=== PATIENT | female | born 1990 | race American Indian/Alaskan Native ===

== ENCOUNTER 2016-11-24 23:47 | Inpatient (IN) | payer MEDICAID ==
[2016-11-25] MEDS ORDERED: SUBLIMAZE IV PRN (00:34)
[2016-11-25] MEDS ORDERED: STADOL IV PRN (00:34)
[2016-11-25] MEDS ORDERED: NARCAN 0.4 MG/1 ML IV PRN (00:34)
[2016-11-25] MEDS ORDERED: NUBAIN IV PRN (00:34)
[2016-11-25] MEDS ORDERED: XYLOCAINE 2% INFILTRATI ONE (00:34)
[2016-11-25] MEDS ORDERED: ZOFRAN IV PRN (00:34)
[2016-11-25] MEDS ORDERED: POLYCILLIN/NS 2 GM/100 ML 2 GM/100 ML BAG IV ONE (00:34)
[2016-11-25] MEDS ORDERED: PHENERGAN PO PRN ×2 (00:34→08:56)
[2016-11-25] MEDS ORDERED: MINERAL OIL PO PRN (00:34)
[2016-11-25] MEDS ORDERED: BRETHINE IVP PRN (00:34)
[2016-11-25] MEDS ORDERED: ePHEDrine SULFATE IV PRN (00:34)
[2016-11-25] MEDS ORDERED: BRETHINE SUB-Q PRN (00:34)
[2016-11-25] MEDS ORDERED: PITOCin/NS 20 UNIT/1000ML DRIP 20 UNITS/1,000 ML BAG IV SCH (01:00)
[2016-11-25] MEDS ORDERED: PITOCin/NS 30 UNIT/500ML 30 UNITS/500 ML BAG IV SCH ×2 (01:00)
[2016-11-25] MEDS: LACTATED RINGERS 1,000 ML IV SCH ×3 (01:00→06:09)
[2016-11-25 01:01] LABS: Hematocrit 29.2 % (30.3-42.9); Hemoglobin 9.7 gm/dl (10.1-14.3); Mean Corpuscular HGB Conc 33 % (30-34); Mean Corpuscular Hemoglobin 27 pg (28-32); Mean Corpuscular Volume 82 fl (79-97); Platelet Count 200 K/mm3 (140-440); Red Blood Count 3.55 M/mm3 (3.65-5.03); Red Cell Distribution Width 15.5 % (13.2-15.2); White Blood Count 7.2 K/mm3 (4.5-11.0)
[2016-11-25] MEDS ORDERED: ROBITUSSIN PO PRN (01:53)
--- NOTE | 2016-11-25 01:53 | History and Physical Report ---
History of Present Illness Date of examination: 11/25/16 Date of admission: 11/25/16 00:32 Chief complaint: water leaking " I think my water broke" History of present illness: This is a 26 yo at 39+2 weeks in complaining of leaking since 9pm. She said there was a gush and clear fluid in hr panties. She denies ctx. and good fm. No report of vaginal bleeding. 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 denies: smoking, alcohol abuse, prescription drug abuse - Obstetrical History Expected Date of Delivery: 11/30/16 Actual Gestation: 39 Week(s) 2 Day(s) : 6 Para: 3 Hx # Term Pregnancies: 3 Number of Pregnancies: 0 Spontaneous Abortions: 1 Induced : 1 Number of Living Children: 3 Medications and Allergies Allergies Allergy/AdvReac Type Severity Reaction Status Date / Time Penicillins Allergy Rash Verified 02/23/16 10:38 Active Meds: Active Medications Butorphanol Tartrate (Stadol) 1 mg IV Q2H PRN PRN Reason: Pain, Moderate (4-6) Fentanyl (Sublimaze) 100 mcg IV Q2H PRN PRN Reason: Labor Pain Lactated Ringer's (Lactated Ringers) 1,000 mls @ 125 mls/hr IV DIRECT [place] Oxytocin/Sodium Chloride (Pitocin/Ns 20 Unit/1000ml Drip) 20 units in 1,000 mls @ 125 mls/hr IV DIRECT [place] Oxytocin/Sodium Chloride (Pitocin/Ns 30 Unit/500ml) 30 units in 500 mls @ 1 mls /hr IV TITR K[place]; 1 MILLIUNITS/MIN PRN Reason: Protocol Oxytocin/Sodium Chloride (Pitocin/Ns 30 Unit/500ml) 30 units in 500 mls @ 0 mls /hr IV TITR KOL[place]; As Directed PRN Reason: Protocol Clindamycin HCl (Cleocin 900 Mg/50 Ml) 900 mg in 50 mls @ 50 mls/hr IV Q8H KOL[place] Vancomycin HCl (Vancomycin/Ns 1 Gm/250 Ml) 1 gm in 250 mls @ 167.007 mls/hr IV ONCE ONE Stop: 11/25/16 03:07 Mineral Oil (Mineral Oil) 30 ml PO QHS PRN PRN Reason: Constipation Nalbuphine HCl (Nubain) 10 mg IV Q2H PRN PRN Reason: Pain, Moderate (4-6) Naloxone HCl (Narcan 0.4 Mg/1 Ml) 0.1 mg IV Q2MIN PRN PRN Reason: Res Rate </= 8 or 02 SAT < 92% Ondansetron HCl (Zofran) 4 mg IV Q8H PRN PRN Reason: Nausea And Vomiting Promethazine HCl (Phenergan) 25 mg PO Q6H PRN PRN Reason: Nausea And Vomiting Review of Systems All systems: negative Respiratory: cough Genitourinary: leakage of fluid - Physical Exam Breasts: Positive: deferred Cardiovascular: Regular rate, Normal S1, Normal S2 Lungs: Positive: Clear to auscultation Abdomen: Positive: normal appearance, soft, normal bowel sounds. Negative: distention, tenderness, guarding Genitourinary (Female): Positive: normal external genitalia, normal perenium Vulva: both: normal Vagina: Positive: other (fluid +) Uterus: Positive: normal size, normal contour Extremities: Positive: normal Deep Tendon Reflex Grade: Normal +2 - Obstetrical FHR: category 1 Uterine Contraction Monitor Mode: External Cervical Dilatation: 2 Cervical Effacement Percentage: 50 station: -3 Uterine Contraction Pattern: Irregular Results Result Diagrams: 11/25/16 00:46 Abnormal lab results 11/25/16 Range/Units 00:46 RBC 3.55 L (3.65-5.03) M/mm3 Hgb 9.7 L (10.1-14.3) gm/dl Hct 29.2 L (30.3-42.9) % MCH 27 L (28-32) pg RDW 15.5 H (13.2-15.2) % All other labs normal. Assessment and Plan A/P IUP 39+2 weeks, term GBS+ ( in office denied allergy to pcn but mentioned on this l and D visit that as a child there was a sensitivity questionable anaphyhlaxis but stated that she was not sure. Based on CDC guidelines if allergic and no sensitivities preferred treatment is Vanc 1g which will be initiated. Will offer epidural for pain control labs and ivf given consider pitocin for augmentation after treatement for GBS expect vaginal delivery
[2016-11-25] MEDS ORDERED: VANCOMYCIN/NS 1 GM/250 ML 1 GM/250 ML BAG IV ONE (02:00)
[2016-11-25] MEDS ORDERED: CLEOCIN 900 MG/50 mL 900 MG/50 ML BAG IV SCH (02:00)
[2016-11-25] MEDS ORDERED: POLYCILLIN/NS 1 GM/50 ML 1 GM/50 ML BAG IV SCH (04:37)
[2016-11-25] MEDS ORDERED: BENADRYL ONE (04:49)
[2016-11-25] MEDS ORDERED: BENADRYL PO ONE (04:49)
[2016-11-25] MEDS ORDERED: BENADRYL IV ONE (05:03)
[2016-11-25] MEDS ORDERED: fentaNYL-BUPIV 2 MCG/ML-0.125% 200 MCG/100 ML BAG EPIDURAL ONE (05:06)
[2016-11-25] MEDS ORDERED: ePHEDrine SULFATE ONE (05:07)
[2016-11-25] MEDS ORDERED: CYTOTEC ONE (05:47)
--- NOTE | 2016-11-25 08:00 | Procedure Note ---
OB Delivery Note - Delivery Date of Delivery: 11/25/16 Surgeon: BEKAH HERNANDEZ Estimated blood loss: 300cc - Vaginal Delivery presentation: vertex Delivery position: OA Intrapartum events: none Delivery induction: none Delivery augmentation: rupture of membranes Delivery monitor: external FHT, external uterine Route of delivery: Delivery placenta: spontaneous Delivery cord: 3 umbilical vessels Episiotomy: none Delivery laceration: none Anesthesia: epidural Delivery comments: Patient was noted to be c/c/0 station and commenced to pushing a viable male in oa presentation at 0739. the baby easily delivered head and shoulders and nasopharynx and oropharynx suctioned. The cord was clamped and cut and the baby placed on mother s chest. The placenta delivered intact with 3 vessel cord at 0743. Apgars 8 and 9. Weight of the fetus male is 6 pounds 10 ounces = 3013 . EBL 300cc. Patient tolerated procedure well.
[2016-11-25] MEDS ORDERED: MILK OF MAGNESIA PO PRN (08:56)
[2016-11-25] MEDS ORDERED: BENADRYL PO PRN (08:56)
[2016-11-25] MEDS ORDERED: PHENERGAN PR PRN (08:56)
[2016-11-25] MEDS ORDERED: LANSINOH TP PRN (08:56)
[2016-11-25] MEDS ORDERED: TUCKS PAD TP PRN (08:56)
[2016-11-25] MEDS ORDERED: TYLENOL PO PRN (08:56)
[2016-11-25] MEDS ORDERED: DULCOLAX PR PRN (08:56)
[2016-11-25] MEDS ORDERED: SODIUM CHLORIDE FLUSH SYRINGE 10 ML IV NR (09:00)
[2016-11-25] MEDS ORDERED: PITOCin/NS 20 UNIT/1000ML DRIP 20,000 MILLIUNITS/1,000 ML BAG IV ONE (10:15)
[2016-11-25] MEDS: MOTRIN PO SCH ×3 (12:25→21:16)
[2016-11-25 20:59] LABS: Hematocrit 28.2 % (30.3-42.9); Hemoglobin 9.4 gm/dl (10.1-14.3)
[2016-11-25] MEDS: NORCO 5/325 PO PRN (22:17)
[2016-11-26] MEDS: MOTRIN PO SCH ×4 (03:10→18:24)
[2016-11-26] MEDS: NORCO 5/325 PO PRN ×2 (08:14→17:04)
--- NOTE | 2016-11-26 08:35 | Progress Note ---
Assessment and Plan - Patient Problems (1) Spontaneous rupture of amniotic membranes Current Visit: Yes Status: Acute Plan to address problem: Patient doing well Discharge home Subjective - Subjective Date of service: 11/26/16 Interval history: The patient denies any significant pain. She states that her lochia is decreasing. She is tolerating a regular diet without complication. Patient reports: appetite normal, voiding normally, pain well controlled : doing well Objective - Vital Signs Latest vital signs: Vital Signs Temp Pulse Pulse Resp BP BP 11/26/16 08:14 20 11/26/16 06:04 18 11/26/16 01:26 98.3 F 88 14 102/63 11/25/16 22:17 18 11/25/16 16:00 98.0 F 56 L 18 108/58 11/25/16 12:00 98.7 F 57 L 16 132/74 11/25/16 08:47 55 L 132/64 11/25/16 08:43 57 L 136/64 11/25/16 08:39 56 L 132/61 Intake and Output 11/25/16 11/26/16 11/26/16 22:59 06:59 14:59 Intake Total 240 Balance 240 Intake: Oral 240 Other: Total, Intake Amount 240 # Voids Void 1 - Exam Abdomen: Present: normal appearance Uterus: Present: normal, firm - Labs Labs: Abnormal lab results 11/25/16 Range/Units 20:41 Hgb 9.4 L (10.1-14.3) gm/dl Hct 28.2 L (30.3-42.9) %
--- NOTE | 2016-11-26 08:36 | Discharge Summary ---
Providers - Providers Date of Admission: 11/25/16 00:32 Date of discharge: 11/26/16 Attending physician: BEKAH HERNANDEZ MD Primary care physician: BEKAH HERNANDEZ MD Hospitalization Reason for admission: active labor, rupture of membranes Delivery: Other procedures: none Discharge diagnosis: IUP at term delivered [place] baby: male Hospital course: The patient presented to labor and delivery with a complaint of leakage of fluid. The patient was augmented and underwent a vaginal delivery. Her course was uneventful. The patient was discharged home when she met discharge criteria. Condition at discharge: Good Disposition: DC-01 TO HOME OR SELFCARE - Discharge Diagnoses (1) Spontaneous rupture of amniotic membranes Status: Acute Plan - Discharge Medications Prescriptions: HYDROcodone/APAP 5-325 [[place] 5/325] 1 each PO Q6HR PRN #30 tablet PRN Reason: Pain Ibuprofen [Motrin] 800 mg PO Q8HR PRN #60 tablet PRN Reason: Pain - Provider Discharge Summary Activity: no sex for 6 weeks, no heavy lifting 4 weeks, no strenuous exercise Diet: routine Instructions: routine Additional instructions: [] Smoking cessation referral if applicable(refer to patient education folder for contact #) [] Refer to [facility] Booklet Call your doctor immediately for: * Fever > 100.5 * Heavy vaginal bleeding ( >1 pad per hour) * Severe persistent headache * Shortness of breath * Reddened, hot, painful area to leg or breast * Follow-up 4 weeks - Follow up plan
--- NOTE | 2016-11-26 10:58 | Progress Note ---
Subjective Date of service: 11/26/16 Interval history: 1st day after normal vaginal delivery Patient is in the bed, comfortable. Pain is well controlled with pain meds. No pruritus. Ambulated well. No residual neurological deficit. No anesthesia complications Objective - Constitutional Vitals: Vital Signs - 12hr 11/26/16 11/26/16 11/26/16 01:26 06:04 08:14 Temperature 98.3 F Pulse Rate [ 88 From Monitor] Pulse Rate [ Left Radial] Respiratory 14 18 20 Rate Blood Pressure 102/63 [Left Arm] 11/26/16 08:25 Temperature 98.0 F Pulse Rate [ From Monitor] Pulse Rate [ 56 L Left Radial] Respiratory 18 Rate Blood Pressure 100/60 [Left Arm] - Labs CBC & Chem 7: 11/25/16 20:41 Labs: Abnormal lab results 11/25/16 Range/Units 20:41 Hgb 9.4 L (10.1-14.3) gm/dl Hct 28.2 L (30.3-42.9) %
[2016-11-26] MEDS: PRENATAL VITAMIN PO SCH (12:16)
[2016-11-26] MEDS ORDERED: ROBITUSSIN DM PO PRN (17:27)
[2016-11-27] MEDS: MOTRIN PO SCH ×3 (00:11→12:00)
[2016-11-27] MEDS: NORCO 5/325 PO PRN (08:59)
[2016-11-27] MEDS: PRENATAL VITAMIN PO SCH (14:34)
[2016-11-27 15:29] VITALS: BP 120/58
== END 2016-11-27 16:15 | disposition home or self-care (01) | DRG 775 ==
LOC: TRG 23:47 → LD 11-25 00:32 → OB 11-25 09:15
PROVIDERS: ADMIT Obstetrics & Gynecology; ATTEND Obstetrics & Gynecology
PROC: 10E0XZZ Delivery of Products of Conception, External Approach (ICD-10-PCS; principal; 2016-11-25)
PROC: 00HU33Z Insertion of Infusion Device into Spinal Canal, Percutaneous Approach (ICD-10-PCS; 2016-11-25)
PROC: 3E0R3CZ (ICD-10-PCS; 2016-11-25)
DX: O99.824 Streptococcus B carrier state complicating childbirth (principal); O99.02 Anemia complicating childbirth; B00.9 Herpesviral infection, unspecified; Z3A.39 39 weeks gestation of pregnancy; Z37.0 Single live birth; Z88.0 Allergy status to penicillin
CPT/HCPCS: 36415; 85014; 85018; 85027; 86592; 86850; 86900; 86901; 99211; A6250; G0463; J1200; J2300; J2590; J3370; J7120

== ENCOUNTER 2018-11-16 09:59 | Emergency (ER) | payer MEDICAID ==
[2018-11-16 10:08] VITALS: BP 121/89
--- NOTE | 2018-11-16 10:46 | Emergency Department Report ---
ED Female HPI - General Chief complaint: Urogenital-Female Stated complaint: PELVIC PAIN Time Seen by Provider: 11/16/18 10:28 Source: patient Mode of arrival: Ambulatory Limitations: No Limitations - History of Present Illness Initial comments: 27-year-old -[place] female that is 7 para 3 last menstrual period 11/14/2018 comes in for abnormal vaginal bleeding and pelvic pain S started for about a week. Patient reports that she was sent over by Dr. Checo Pacheco for a transvaginal ultrasound. Patient reports that she's been having pelvic cramping as if she is having contractions. Patient reports that she's been on several different control including And now she's taking the patch. Patient reports that the progesterone in the -control mixer bleed. Patient does admit to nausea vomiting with some diarrhea. Patient reports that the blood has stopped since Friday after she placed a patch on. Patient reports she has a history of bipolar currently takes Zoloft 100 mg daily Restoril 50 mg twice a day and Abilify 2 mg daily at bedtime. MD Complaint: pelvic pain Onset/Timin -: week(s) Location: suprapubic Severity: severe Quality: cramping, sharp Consistency: constant Improves with: none Worsens with: menstrual period Are you Now?: No Last Menstrual Period: 11/14/18 EDC: 08/21/19 Associated Symptoms: vaginal bleeding (written), other (L foot pain) - Related Data Sexually active: Yes : 7 Para: 5 Previous Rx's Medication Instructions Recorded Last Taken Type HYDROcodone/APAP 5-325 [[place] 1 each PO Q6HR PRN #30 tablet 11/26/16 Unknown Rx 5/325] Ibuprofen [Motrin] 800 mg PO Q8HR PRN #60 tablet 11/26/16 Unknown Rx Ferrous Sulfate 325 mg PO BID #60 tablet. 04/16/18 Unknown Rx Ferrous Sulfate [Feosol 325 MG tab] 325 mg PO BID #60 tablet 04/16/18 Unknown Rx oxyCODONE /ACETAMINOPHEN [Percocet 1 tab PO Q4HR #30 tab 04/16/18 Unknown Rx 5/325] Ibuprofen [Motrin 600 MG tab] 600 mg PO Q8H PRN #30 tablet 11/16/18 Unknown Rx Allergies Allergy/AdvReac Type Severity Reaction Status Date / Time Penicillins Allergy Rash Verified 02/23/16 10:38 ED Review of Systems ROS: Stated complaint: PELVIC PAIN Other details as noted in HPI Comment: All other systems reviewed and negative ED Past Medical Hx - Past Medical History Previous Medical History?: No Hx Hypertension: No Hx Congestive Heart Failure: No Hx Diabetes: No Hx Deep Vein Thrombosis: No Hx Renal Disease: No Hx Sickle Cell Disease: No Hx Seizures: No Hx Asthma: No Hx COPD: No Hx HIV: No Additional medical history: bipolar - Surgical History Past Surgical History?: No - Social History Smoking Status: Current Every Day Smoker Substance Use Type: None - Medications Home Medications: Home Medications Medication Instructions Recorded Confirmed Last Taken Type HYDROcodone/APAP 5-325 [[place] 1 each PO Q6HR PRN #30 tablet 11/26/16 04/17/18 Unknown Rx 5/325] Ibuprofen [Motrin] 800 mg PO Q8HR PRN #60 tablet 11/26/16 04/17/18 Unknown Rx Ferrous Sulfate 325 mg PO BID #60 tablet. 04/16/18 Unknown Rx Ferrous Sulfate [Feosol 325 MG tab] 325 mg PO BID #60 tablet 04/16/18 Unknown Rx oxyCODONE /ACETAMINOPHEN [Percocet 1 tab PO Q4HR #30 tab 04/16/18 Unknown Rx 5/325] Ibuprofen [Motrin 600 MG tab] 600 mg PO Q8H PRN #30 tablet 11/16/18 Unknown Rx ED Physical Exam - General Limitations: No Limitations General appearance: alert, in no apparent distress - Head Head exam: Present: atraumatic, normocephalic - Eye Eye exam: Present: normal appearance - ENT ENT exam: Present: mucous membranes moist ED Course Vital Signs 11/16/18 11/16/18 10:04 11:02 Temperature 97.9 F Pulse Rate 71 Respiratory 18 18 Rate Blood Pressure 121/89 O2 Sat by Pulse 98 Oximetry ED Medical Decision Making - Radiology Data Radiology results: report reviewed Patient: DWAYNE HERRON MR#: [id number] : 1990 Acct:[id number] Age/Sex: 27 / F ADM Date: 11/16/18 Loc: ED Attending Dr: Ordering Physician: YAIR PICKARD Date of Service: 11/16/18 Procedure(s): US transvaginal Accession Number(s): [id number] cc: YAIR PICKARD PELVIC ULTRASOUND HISTORY: Elbow pain COMPARISON: None. TECHNIQUE: Transverse and longitudinal images were obtained of the pelvis using transabdominal and transvaginal ultrasound. FINDINGS: Uterus: Normal size and echogenicity. No masses. Uterus measures 9.9 x 3.5 x 3.4 cm. Endometrium: Normal thickness measuring 8 mm. Right Ovary: Normal size, blood flow and appearance measuring 2.6 x 1.1 x 2.4 cm. Left Ovary: Normal size, blood flow and appearance measuring 2.5 x 1.5 x 2.2 cm. Additional findings: None. IMPRESSION: 1. Normal pelvic ultrasound for age. Signer Name: Jose Rafael Wilson MD Signed: 11/16/2018 1:19 PM Workstation Name: [id number] Transcribed By: DENAE Dictated By: Jose Rafael Wilson MD Electronically Authenticated By: Jose Rafael Wilson MD Signed Date/Time: 11/16/189 DD/ 17 TD/TT: - Medical Decision Making When he 7-year-old female comes in for pelvic pain and cramping. Patient was poorly sent over by Dr. Checo Pacheco for pelvic ultrasound concern for cysts. Ultrasound was normal examination. HCG was less than 2. Patient be discharged home with ibuprofen and to follow-up with Dr. Checo Pacheco. Critical care attestation.: If time is entered above; I have spent that time in minutes in the direct care of this critically ill patient, excluding procedure time. ED Disposition Clinical Impression: Pelvic pain Disposition: DC-01 TO HOME OR SELFCARE Is pt being admited?: No Does the pt Need Aspirin: No Condition: Stable Additional Instructions: Ultrasound was negative for any abnormalities of your pelvis. Ibuprofen for pain management. Follow up with Dr. Checo Pacheco the symptoms persist or gets worse. Prescriptions: Ibuprofen [Motrin 600 MG tab] 600 mg PO Q8H PRN #30 tablet PRN Reason: Pain Referrals: SONU SCHULTZ MD [Primary Care Provider] - 3-5 Days CHECO PACHECO MD [Staff Physician] - 3-5 Days Forms: Work/School Release Form(ED)
[2018-11-16] MEDS ORDERED: TORADOL IM ONE (10:48)
[2018-11-16 12:41] LABS: Bacteria,Urine 1+ /HPF (Negative); Bilirubin,Urine NEG (Negative); Blood,Urine NEG (Negative); Color,Urine Yellow (Yellow); Mucus,Urine 3+ /HPF; Urobilinogen,Urine < 2.0 mg/dL (<2.0)
--- NOTE | 2018-11-16 13:24 | Ultrasound Report ---
PELVIC ULTRASOUND HISTORY: Elbow pain COMPARISON: None. TECHNIQUE: Transverse and longitudinal images were obtained of the pelvis using transabdominal and tr ansvaginal ultrasound. FINDINGS: Uterus: Normal size and echogenicity. No masses. Uterus measures 9.9 x 3.5 x 3.4 cm. Endometrium: Normal thickness measuring 8 mm. Right Ovary: Normal size, blood flow and appearance measuring 2.6 x 1.1 x 2.4 cm. Left Ovary: Normal size, blood flow and appearance measuring 2.5 x 1.5 x 2.2 cm. Additional findings: None. IMPRESSION: 1. Normal pelvic ultrasound for age. Signer Name: Jose Rafael Wilson MD Signed: 11/16/2018 1:19 PM Workstation Name: [id number]
== END 2018-11-16 13:48 | disposition home or self-care (01) ==
LOC: ED 09:59
DX: R10.2 Pelvic and perineal pain (principal); N93.9 Abnormal uterine and vaginal bleeding, unspecified; R11.2 Nausea with vomiting, unspecified; R19.7 Diarrhea, unspecified; F31.9 Bipolar disorder, unspecified; F17.200 Nicotine dependence, unspecified, uncomplicated; Z88.0 Allergy status to penicillin; Z79.1 Long term (current) use of non-steroidal anti-inflammatories (NSAID); Z79.899 Other long term (current) drug therapy
CPT/HCPCS: 36415; 76830; 76856; 81001; 84702; 87086; 96372; 99284; J1885

== ENCOUNTER 2019-08-26 16:55 | Outpatient (CLI) | payer MEDICAID ==
[2019-08-26 15:33] VITALS: BP 124/67
[~2019-08-26 16:55] MED LIST: BETAMET ACET/BETAMET NA PH 6 MG/ML INJ 5 ML MDV IM ONE
--- NOTE | 2019-08-26 17:30 | Ultrasound Report ---
US OB limited INDICATION: +FFN, PELVIC PRESSURE/ TAMI. COMPARISON: None available. FINDINGS: There is a single intrauterine in cephalic position with heart rate of 146 bpm. Amnio tic fluid index measures 14.6 cm, which is normal. IMPRESSION: 1. Normal amniotic fluid index. Signer Name: Jose Rafael Wilson MD Signed: 08/26/2019 5:26 PM Workstation Name: [email or web address]
--- NOTE | 2019-08-26 17:31 | Ultrasound Report ---
ULTRASOUND BIOPHYSICAL PROFILE INDICATION / CLINICAL INFORMATION: PELVIC PRESSURE, FFN+. COMPARISON: None available. FINDINGS: BREATHING MOVEMENT = 2 GROSS BODY MOVEMENT = 2 TONE = 2 QUALITATIVE AMNIOTIC FLUID VOLUME = 2 TOTAL BIOPHYSICAL SCORE = 12/17 AMNIOTIC FLUID INDEX (cm) = 14.6 PRESENTATION: Cephalic. HEART RATE (beats per minute): 146 IMPRESSION: 1. biophysical profile = 12/17 Signer Name: Jose Rafael Wilson MD Signed: 08/26/2019 5:27 PM Workstation Name: [id number]
[2019-08-26] MEDS ORDERED: BETAMET ACET/BETAMET NA PH 6 MG/ML INJ 5 ML MDV IM ONE ×2 (17:40→17:46)
== END 2019-08-26 17:50 | disposition home or self-care (01) ==
LOC: TRG 16:55 → APU 16:55 → TRG 17:50
PROVIDERS: ATTEND Obstetrics & Gynecology
DX: O26.893 Other specified pregnancy related conditions, third trimester (principal); R10.2 Pelvic and perineal pain; O99.343 Other mental disorders complicating pregnancy, third trimester; F32.9 Major depressive disorder, single episode, unspecified; Z3A.33 33 weeks gestation of pregnancy
CPT/HCPCS: 59025; 76815; 76819; 96372; J0702

== ENCOUNTER 2019-08-27 21:32 | Outpatient (CLI) | payer MEDICAID ==
[2019-08-27] MEDS ORDERED: BETAMET ACET/BETAMET NA PH 6 MG/ML INJ 5 ML MDV IM ONE ×2 (21:49→21:52)
[2019-08-27 21:59] VITALS: BP 114/57
== END 2019-08-27 22:25 | disposition home or self-care (01) ==
LOC: TRG 21:32 → APU 21:33 → TRG 22:25
PROVIDERS: ATTEND Obstetrics & Gynecology
DX: O47.03 False labor before 37 completed weeks of gestation, third trimester (principal); Z3A.33 33 weeks gestation of pregnancy; Z87.891 Personal history of nicotine dependence
CPT/HCPCS: 59025; 96372; J0702

== ENCOUNTER 2019-09-24 05:11 | Inpatient (IN) | payer MEDICAID ==
[2019-09-24] MEDS ORDERED: OXYTOCIN 10 UNIT/1 ML INJ ONE (05:51)
[2019-09-24] MEDS ORDERED: OXYTOCIN 20 UNIT/1000ML DRIP 20,000 MILLIUNITS/1,000 ML BAG IV ONE (05:51)
[2019-09-24] MEDS ORDERED: LACTATED RINGERS 1,000 ML ONE (05:51)
[2019-09-24] MEDS ORDERED: LIDOCAINE (2%) 20 MG/1 ML VIAL 20 ML MDV INFILTRATI ONE ×2 (05:52→06:17)
[2019-09-24] MEDS ORDERED: MINERAL OIL 30 ML ORAL LIQD ONE (05:52)
[2019-09-24] MEDS ORDERED: PROMETHAZINE 25 MG TAB PO PRN ×2 (06:17→10:04)
[2019-09-24] MEDS ORDERED: TERBUTALINE 1 MG/1 ML INJ SUB-Q PRN (06:17)
[2019-09-24] MEDS ORDERED: TERBUTALINE 1 MG/1 ML INJ IVP PRN (06:17)
[2019-09-24] MEDS ORDERED: ONDANSETRON 4 MG/2 ML INJ IV PRN ×2 (06:17→10:04)
[2019-09-24] MEDS ORDERED: BUTORPHANOL 2 MG/1 ML INJ IV PRN ×2 (06:17)
[2019-09-24] MEDS ORDERED: MINERAL OIL 30 ML ORAL LIQD PO PRN (06:17)
[2019-09-24] MEDS ORDERED: fentaNYL 100 MCG/2 ML INJ IV PRN (06:17)
[2019-09-24] MEDS ORDERED: NALOXONE 0.4 MG/1 ML INJ IV PRN (06:17)
[2019-09-24] MEDS ORDERED: ePHEDrine SULFATE 50 MG/1 ML INJ IV PRN (06:17)
--- NOTE | 2019-09-24 06:24 | History and Physical Report ---
History of Present Illness Date of examination: 09/24/19 Date of admission: 09/24/19 Chief complaint: Contractions and bloody show History of present illness: Pt is a 28 yo at 37.4 weeks EGA who presents reporting regular, strong uterine contractions and bloody show since 0300 today. She REports positive movement and denies LOF or venessa bleeding. She has received care with [facility]. Her course has been complicated by EIF, Right choroid plexus cyst, trichomonas with negative test of cure, positive FFN with BMZ x2, late entry into care, and HSV-2 positive. She is GBS negative and has a history of depression/bipolar disorder on Zoloft. 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, trichomonas Family/Genetic History: diabetes, cancer Social history: no significant social history - Obstetrical History : 8 Medications and Allergies Allergies Allergy/AdvReac Type Severity Reaction Status Date / Time Penicillins Allergy Rash Verified 02/23/16 10:38 Home Medications Medication Instructions Recorded Confirmed Last Taken Type No Known Home Medications [No 09/24/19 09/24/19 Unknown History Reported Home Medications] Active Meds: Active Medications Butorphanol Tartrate (Stadol) 1 mg IV Q2H PRN PRN Reason: Pain, Moderate(4-6) LABOR PAIN Ephedrine Sulfate (Ephedrine Sulfate) 10 mg IV Q2M PRN PRN Reason: Hypotension Fentanyl (Sublimaze) 100 mcg IV Q2H PRN PRN Reason: Pain,Severe (7-10) LABOR PAIN Oxytocin/Sodium Chloride (Pitocin/Ns 20 Unit/1000ml Drip) 20 units in 1,000 mls @ 125 mls/hr IV DIRECT [place] Lactated Ringer's (Lactated Ringers) 1,000 mls @ 125 mls/hr IV DIRECT [place] Mineral Oil (Mineral Oil) 30 ml PO QHS PRN PRN Reason: Constipation Terbutaline Sulfate (Brethine) 0.25 mg SUB-Q ONCE PRN PRN Reason: Hyperstimulation/Hypertonicity Terbutaline Sulfate (Brethine) 0.25 mg IVP ONCE PRN PRN Reason: Hyperstimulation/Hypertonicity Review of Systems All systems: negative Genitourinary: vaginal discharge (bloody show), leakage of fluid (upon exam), contractions - Vital Signs Vital signs: Vital Signs Pulse BP 85 133/84 09/24/19 05:43 09/24/19 05:43 Temp Pulse Resp BP Pulse Ox 85 133/84 09/24/19 05:43 09/24/19 05:43 - Physical Exam Lungs: Positive: Normal air movement Abdomen: Positive: soft Genitourinary (Female): Positive: normal external genitalia Uterus: Positive: enlarged (gravid) Extremities: Positive: normal - Obstetrical FHR: category 1 Uterine Contraction Monitor Mode: External Cervical Dilatation: 8 Cervical Effacement Percentage: 90 station: 0 Uterine Contraction Frequency (min): 3-5 Uterine Contraction Pattern: Regular Uterine Tone Measurement Phase: Contraction Uterine Contraction Intensity: Strong/Firm Results All other labs normal. 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
[2019-09-24 06:43] LABS: Hematocrit 33.4 % (30.3-42.9); Hemoglobin 10.9 gm/dl (10.1-14.3); Mean Corpuscular HGB Conc 33 % (30-34); Mean Corpuscular Volume 83 fl (79-97); Platelet Count 206 K/mm3 (140-440); Red Blood Count 4.02 M/mm3 (3.65-5.03); Red Cell Distribution Width 15.2 % (13.2-15.2)
[2019-09-24] MEDS ORDERED: LACTATED RINGERS 1,000 ML IV SCH (07:00)
[2019-09-24] MEDS ORDERED: OXYTOCIN 20 UNIT/1000ML DRIP 20 UNITS/1,000 ML BAG IV SCH (07:00)
[2019-09-24] MEDS ORDERED: DEXMEDETOMIDINE 200 MCG/2 ML VIAL IV ONE (08:01)
--- NOTE | 2019-09-24 08:28 | Anesthesia Consultation ---
Anesthesia Consult and Med Hx Date of service: 09/24/19 - Airway Anesthetic Teeth Evaluation: Good ROM Head & Neck: Adequate Mental/Hyoid Distance: Adequate Mallampati Class: Class II Intubation Access Assessment: Good - Pulmonary Exam CTA: Yes - Cardiac Exam Cardiac Exam: RRR - Pre-Operative Health Status ASA Pre-Surgery Classification: ASA2, Emergency Proposed Anesthetic Plan: Epidural - Pulmonary Hx Asthma: No COPD: No Hx Pneumonia: No - Cardiovascular System Hx Hypertension: No - Central Nervous System Hx Seizures: No Hx Psychiatric Problems: Yes (Bipolar) - Endocrine Hx Renal Disease: No Hx End Stage Renal Disease: No Hx Hypothyroidism: No Hx Hyperthyroidism: No - Hematic Hx Anemia: No Hx Sickle Cell Disease: No - Other Systems Hx Alcohol Use: No
--- NOTE | 2019-09-24 08:33 | Progress Note ---
Labor Epidural - Labor Epidural Start Time: 08:08 Stop Time: 08:11 Performed by:: DEEPTHI LANZA Procedure: Patient is requesting a laboring epidural for laboring pain. Patient IDed, H&P reviewed, all questions and concerns were answered, and consent was signed. Timeout was performed at bedside. Patient in sitting position. Sterile prep and drape was performed. [3] ml of 1% lidocaine skin wheal at L[3]- L [4]. 18- gauge Touhy epidural needle was advanced to loss of resistance with air technique. Negative CSF negative blood. Epidural catheter advanced to [15] centimeters. [-] Aspiration [-] test dose. Sterile dressing applied. Patient tolerated procedure.
[2019-09-24] MEDS ORDERED: fentaNYL-BUPIV 2 MCG/ML-0.125% 200 MCG/100 ML BAG EPIDURAL SCH (09:00)
[2019-09-24] MEDS ORDERED: OXYTOCIN DRIP 30 UNITS/500 ML BAG IV SCH (09:00)
[2019-09-24] MEDS: OXYTOCIN 20 UNIT/1000ML DRIP 20 UNITS/1,000 ML BAG IV SCH ×2 (10:00→11:21)
[2019-09-24] MEDS ORDERED: MAGNESIUM HYDROXIDE (MOM) ORAL LIQD UDC PO PRN (10:04)
[2019-09-24] MEDS ORDERED: WITCH HAZEL/ GLYCERIN PAD TP PRN (10:04)
[2019-09-24] MEDS ORDERED: LANOLIN/ZINC/DIMETHICONE (LANSINOH) 7 GM TP PRN (10:04)
[2019-09-24] MEDS ORDERED: oxyCODONE /ACETAMINOPHEN 5-325MG TAB PO PRN (10:04)
[2019-09-24] MEDS ORDERED: PROMETHAZINE 25 MG RECT SUPP PR PRN (10:04)
[2019-09-24] MEDS ORDERED: ACETAMINOPHEN 325 MG TAB PO PRN (10:04)
[2019-09-24] MEDS ORDERED: diphenhydrAMINE 25 MG CAP PO PRN (10:04)
[2019-09-24] MEDS ORDERED: KETOROLAC 30 MG/1 ML INJ IV PRN (10:04)
--- NOTE | 2019-09-24 10:10 | Procedure Note ---
OB Delivery Note - Delivery Date of Delivery: 09/24/19 Surgeon: BEKAH HERNANDEZ Estimated blood loss: 100cc - Vaginal Delivery presentation: vertex Delivery position: OA Delivery augmentation: rupture of membranes Delivery monitor: external FHT, external uterine Route of delivery: Delivery placenta: spontaneous Delivery cord: 3 umbilical vessels Episiotomy: none Delivery laceration: none Anesthesia: none, epidural Delivery comments: Patient was noted to be c/c/ +1 and commenced to pushing a viable female infant at 958a in JOYCE presentation with easily delivery of head, shoulders and body. The baby placed on mom chest and suction nasooropharynx and oropharynx. The cord clamped and cut. The placenta delivered intact with 3 vessel cord at 1000a. survey of perineum revealed no lacs. EBL 100 cc. Weight 7 pounds 3.5 oz with Apgars 8 and 9. Patient tolkerated procedure well - Infant A at 1 minute: 8 at 5 minutes: 9 Infant Gender: Female (7 POUNDS 3.5 OZ)
[2019-09-24] MEDS: HYDROcodone/ACETAMINOPHEN 5-325 MG TAB PO PRN ×2 (14:20→20:44)
[2019-09-24] MEDS: DOCUSATE SODIUM 100 MG CAP PO SCH (23:21)
[2019-09-24] MEDS: IBUPROFEN 600 MG TAB PO SCH (23:21)
[2019-09-25 00:30] LABS: Hemoglobin 8.9 gm/dl (10.1-14.3)
[2019-09-25] MEDS: IBUPROFEN 600 MG TAB PO SCH ×2 (05:20→14:18)
[2019-09-25] MEDS: DOCUSATE SODIUM 100 MG CAP PO SCH (09:40)
[2019-09-25] MEDS ORDERED: PRENATAL VIT27-FE FUMARATE-FOLIC ACID VIT TAB PO SCH (10:00)
[2019-09-25] MEDS ORDERED: MEASLES, MUMPS & RUBELLA 12,500 UNIT/0.5 ML VACCINE SUB-Q ONE (12:00)
[2019-09-25] MEDS ORDERED: DIPHtheria,PERTUSSIS(ACELL),TETANUS VACCINE/PF 0.5 ML VIAL IM ONE (12:00)
--- NOTE | 2019-09-25 14:15 | Progress Note ---
Assessment and Plan PPD 1 s/p . Doing well. Plan for discharge on today if baby able to go Subjective - Subjective Date of service: 09/25/19 Patient reports: appetite normal, voiding normally, pain well controlled, ambulating normally [place]: doing well Objective - Vital Signs Latest vital signs: Vital Signs Temp Pulse Resp BP BP Pulse Ox 09/25/19 08:20 97.7 F 58 L 20 119/60 97 09/25/19 00:41 98.4 F 51 L 20 111/50 98 09/24/19 19:28 98.7 F 57 L 20 105/68 100 09/24/19 16:15 97.6 F 75 18 113/55 100 Intake and Output 09/24/19 09/25/19 09/25/19 22:59 06:59 14:59 Intake Total 480 480 240 Balance 480 480 240 Intake: Oral 480 480 240 Other: Total, Intake Amount 240 240 240 # Voids Void 1 1 1 - Exam Breasts: Present: deferred Cardiovascular: Present: Regular rate, Normal S1, Normal S2 Lungs: Present: Clear to auscultation, Normal air movement Abdomen: Present: normal appearance, soft, normal bowel sounds Vulva: both: normal Uterus: Present: normal, bogginess Extremities: Present: normal - Labs Labs: Abnormal lab results 09/24/19 Range/Units 23:45 Hgb 8.9 L (10.1-14.3) gm/dl Hct 27.0 L D (30.3-42.9) %
--- NOTE | 2019-09-25 14:17 | Discharge Summary ---
Providers - Providers Date of Admission: 09/24/19 06:17 Date of discharge: 09/25/19 Attending physician: BEKAH HERNANDEZ MD Primary care physician: BEKAH HERNANDEZ MD Hospitalization Reason for admission: active labor Delivery: Laceration: none Discharge diagnosis: IUP at term delivered [place] baby: male Hospital course: unremarkable Condition at discharge: Good Disposition: DC-01 TO HOME OR SELFCARE Plan - Discharge Medications Prescriptions: Ibuprofen [Motrin 600 MG tab] 600 mg PO Q6H #40 tablet HYDROcodone/APAP 5-325 [[place] 5-325 mg TAB] 2 each PO Q6H PRN #15 tablet PRN Reason: Pain, Moderate (4-6) - Provider Discharge Summary Activity: routine, no sex for 6 weeks, no heavy lifting 4 weeks, no strenuous exercise Diet: routine Instructions: routine Additional instructions: [] Smoking cessation referral if applicable(refer to patient education folder for contact #) [] Refer to [facility]'s [facility] Booklet Call your doctor immediately for: * Fever > 100.5 * Heavy vaginal bleeding ( >1 pad per hour) * Severe persistent headache * Shortness of breath * Reddened, hot, painful area to leg or breast * Drainage or odor from incision. * Keep incision clean and dry at all times and follow doctor's instructions regarding bathing/showering - Follow up plan Follow up: BEKAH HERNANDEZ MD [Primary Care Provider] - 6 Weeks
[2019-09-25 16:42] VITALS: BP 122/77
--- NOTE | 2019-09-26 09:30 | Post Anesthesia Evaluation ---
- Post Anesthesia Evaluation Patient Participated: Yes Airway Patent: Yes Stable Respiratory Function: Yes Nausea/Vomiting: No Temp > 96.8F: Yes Pain Manageable: Yes Adequeate Hydration: Yes Anesthesia Complications: No Block Receding Appropriately: Yes Patient on Ventilator: No
== END 2019-09-25 17:00 | disposition home or self-care (01) | DRG 774 ==
LOC: TRG 05:11 → APU 05:12 → TRG 06:17 → LD 07:23 → OB 12:19
PROVIDERS: ADMIT Obstetrics & Gynecology; ATTEND Obstetrics & Gynecology
PROC: 3E0R3BZ Introduction of Anesthetic Agent into Spinal Canal, Percutaneous Approach (ICD-10-PCS; 2019-09-24)
PROC: 00HU33Z Insertion of Infusion Device into Spinal Canal, Percutaneous Approach (ICD-10-PCS; 2019-09-24)
PROC: 10E0XZZ Delivery of Products of Conception, External Approach (ICD-10-PCS; 2019-09-24)
PROC: 3E0234Z Introduction of Serum, Toxoid and Vaccine into Muscle, Percutaneous Approach (ICD-10-PCS; principal; 2019-09-25)
PROC: 3E0134Z Introduction of Serum, Toxoid and Vaccine into Subcutaneous Tissue, Percutaneous Approach (ICD-10-PCS; 2019-09-25)
DX: O98.52 Other viral diseases complicating childbirth (principal); O99.344 Other mental disorders complicating childbirth; Z23 Encounter for immunization; Z88.0 Allergy status to penicillin; F31.9 Bipolar disorder, unspecified; B00.9 Herpesviral infection, unspecified
CPT/HCPCS: 36415; 59025; 85014; 85018; 85027; 86850; 86900; 86901; 96360; 96361; 96365; 96366; G0378; J2405; J2590; J3010; J3490; J7120; Q0169

== ENCOUNTER 2021-01-16 11:09 | Outpatient (CLI) | payer MEDICAID ==
[2021-01-16] MEDS ORDERED: LACTATED RINGERS 500 ML IV ONE (11:55)
[2021-01-16] MEDS ORDERED: ONDANSETRON 4 MG/2 ML INJ IV STA (11:55)
[2021-01-16 11:57] VITALS: BP 120/68
[2021-01-16] MEDS ORDERED: LACTATED RINGERS 1,000 ML IV ONE (14:07)
== END 2021-01-16 16:30 | disposition home or self-care (01) ==
LOC: TRG 11:09 → APU 11:11 → TRG 11:11 → APU 12:08 → TRG 16:30
DX: O21.2 Late vomiting of pregnancy (principal); Z3A.25 25 weeks gestation of pregnancy
CPT/HCPCS: 59025; 96361; 96374; J2405; J7120; 96360; 96372

== ENCOUNTER 2021-01-19 22:06 | Observation (INO) | payer MEDICAID ==
[2021-01-19] MEDS ORDERED: ONDANSETRON 4 MG/2 ML INJ ONE (22:55)
[2021-01-19] MEDS ORDERED: LACTATED RINGERS 1,000 ML ONE (22:55)
[2021-01-19] MEDS ORDERED: ONDANSETRON 4 MG/2 ML INJ IV ONE (23:44)
[2021-01-19] MEDS ORDERED: LACTATED RINGERS 1,000 ML IV ONE (23:46)
[2021-01-19] MEDS ORDERED: LACTATED RINGERS 500 ML IV ONE (23:47)
[2021-01-19] MEDS ORDERED: PROMETHAZINE 25 MG RECT SUPP PR PRN (23:48)
[2021-01-20 01:57] LABS: Bacteria,Urine 2+ /HPF (Negative); Bilirubin,Urine NEG (Negative); Blood,Urine NEG (Negative); Color,Urine Amber (Yellow); Mucus,Urine 2+ /HPF
[2021-01-20 08:27] VITALS: BP 112/64
== END 2021-01-20 10:55 | disposition home or self-care (01) ==
LOC: TRG 22:06 → APU 22:08 → TRG 23:47 → LD 23:47
DX: O21.2 Late vomiting of pregnancy (principal); Z3A.25 25 weeks gestation of pregnancy; Z79.899 Other long term (current) drug therapy
CPT/HCPCS: 59025; 81001; 87086; 96360; G0378; J2405; J7120